=== PATIENT | male | born 1995 | race Caucasian/White ===

== ENCOUNTER 2017-01-29 23:03 | Emergency (ER) | payer BC ==
[2017-01-29 23:07] VITALS: RESP 16
[2017-01-29] MEDS ORDERED: ONDANSETRON 4 MG/2 ML VIAL IVP STA (23:53)
[2017-01-29] MEDS ORDERED: MAG HYDROX/AL HYDROX/SIMETH 30 ML, HYOSCYAMINE ELIXIR 10 ML, CIMETIDINE HCL 300 MG PO STA ×3 (23:53)
[2017-01-29] MEDS ORDERED: FAMOTIDINE 20 MG/2 ML VIAL IV STA (23:53)
--- NOTE | 2017-01-29 23:55 | ED ---
Abdominal Pain HPI - General Chief Complaint: Abdominal Pain Stated Complaint: Abd Pain Time Seen by Provider: 01/29/17 23:23 Source: patient, RN notes reviewed Mode of arrival: ambulatory Limitations: no limitations - History of Present Illness Initial Comments: 21-year-old male presents emergency Department chief complaint of epigastric pain. Patient states started last 2 days states he has not been able to use much his usual. He does admit to some acid reflux and nausea. Denies any vomiting, constipation. He states he has had some lites diarrhea. Denies any dysuria or hematuria. He's had no prior abdominal surgeries. Denies any fever , chills, night sweats, chest pain or shortness of breath. He states he tried some antacids of some sort cannot remember the name but had minimal relief. - Related Data Previous Rx's Medication Instructions Recorded Omeprazole 40 mg PO DAILY #14 capsule. 01/30/17 Ondansetron Odt [Zofran Odt] 4 mg PO Q8HR PRN #10 tab 01/30/17 Allergies Allergy/AdvReac Type Severity Reaction Status Date / Time No Known Allergies Allergy Verified 01/29/17 23:07 Review of Systems ROS Statement: Those systems with pertinent positive or pertinent negative responses have been documented in the HPI. ROS Other: All systems not noted in ROS Statement are negative. Past Medical History Past Medical History: No Reported History History of Any Multi-Drug Resistant Organisms: None Reported Past Surgical History: No Surgical Hx Reported Past Psychological History: No Psychological Hx Reported Smoking Status: Never smoker Past Alcohol Use History: Occasional Past Drug Use History: None Reported General Exam Limitations: no limitations General appearance: alert, in no apparent distress Head exam: Present: atraumatic, normocephalic, normal inspection Neck exam: Present: normal inspection. Absent: tenderness, meningismus, lymphadenopathy Respiratory exam: Present: normal lung sounds bilaterally. Absent: respiratory distress, wheezes, rales, rhonchi, stridor Cardiovascular Exam: Present: regular rate, normal rhythm, normal heart sounds. Absent: systolic murmur, diastolic murmur, rubs, gallop, clicks GI/Abdominal exam: Present: soft, tenderness (Moderate epigastric tenderness), normal bowel sounds. Absent: distended, guarding, rebound, rigid Back exam: Absent: CVA tenderness (R), CVA tenderness (L) Skin exam: Present: warm, dry, intact, normal color. Absent: rash Course Vital Signs 01/29/17 01/30/17 23:06 00:22 Temperature 98.4 F Pulse Rate 94 95 Respiratory 16 16 Rate Blood Pressure 137/83 142/80 O2 Sat by Pulse 98 98 Oximetry Medical Decision Making - Medical Decision Making 21-year-old male present emergency department for epigastric discomfort. Patient's laboratory shows no acute abnormality. Patient was given GI cocktail to see if it does feel improved at this time. Patient will be started on omeprazole and given Zofran for his nausea. Patient will follow-up with PCP for recheck and we did discuss possible EGD if symptoms do not improve. - Lab Data Result diagrams: 01/29/17 23:53 01/29/17 23:53 Lab Results 01/29/17 01/29/17 01/29/17 Range/Units 23:53 23:53 23:53 WBC 6.3 (3.8-10.6) k/uL RBC 5.60 (4.30-5.90) m/uL Hgb 16.2 (13.0-17.5) gm/dL Hct 46.9 (39.0-53.0) % MCV 83.7 (80.0-100.0) fL MCH 28.9 (25.0-35.0) pg MCHC 34.5 (31.0-37.0) g/dL RDW 13.1 (11.5-15.5) % Plt Count 165 (150-450) k/uL Neutrophils % 59 % Lymphocytes % 33 % Monocytes % 5 % Eosinophils % 1 % Basophils % 1 % Neutrophils # 3.7 (1.3-7.7) k/uL Lymphocytes # 2.1 (1.0-4.8) k/uL Monocytes # 0.3 (0-1.0) k/uL Eosinophils # 0.1 (0-0.7) k/uL Basophils # 0.0 (0-0.2) k/uL Sodium 140 (137-145) mmol/L Potassium 4.3 (3.5-5.1) mmol/L Chloride 100 (98-107) mmol/L Carbon Dioxide 27 (22-30) mmol/L Anion Gap 13 mmol/L BUN 16 (9-20) mg/dL Creatinine 0.90 (0.66-1.25) mg/dL Est GFR (MDRD) Af Amer >60 (>60 ml/min/1.73 sqM) Est GFR (MDRD) Non-Af >60 (>60 ml/min/1.73 sqM) Glucose 84 (74-99) mg/dL Calcium 10.5 H (8.4-10.2) mg/dL Total Bilirubin 0.7 (0.2-1.3) mg/dL AST 25 (17-59) U/L ALT 36 (21-72) U/L Alkaline Phosphatase 62 (38-126) U/L Total Protein 8.1 (6.3-8.2) g/dL Albumin 4.8 (3.5-5.0) g/dL Amylase 47 (30-110) U/L Lipase 37 (23-300) U/L Urine Color Yellow Urine Appearance Clear (Clear) Urine pH 5.5 (5.0-8.0) Ur Specific [place] 1.022 (1.001-1.035) Urine Protein Negative (Negative) Urine Glucose (UA) Negative (Negative) Urine Ketones Trace H (Negative) Urine Blood Negative (Negative) Urine Nitrite Negative (Negative) Urine Bilirubin Negative (Negative) Urine Urobilinogen <2.0 (<2.0) mg/dL Ur Leukocyte Esterase Negative (Negative) Disposition Clinical Impression: Gastritis Disposition: HOME SELF-CARE Condition: Stable Instructions: Gastritis (ED) Additional Instructions: Please return to the Emergency Department if symptoms worsen or any other concerns. Prescriptions: Omeprazole 40 mg PO DAILY #14 capsule. Ondansetron Odt [Zofran Odt] 4 mg PO Q8HR PRN #10 tab PRN Reason: Nausea Referrals: None,Stated [Primary Care Provider] - 1-2 days Prashanth Washington MD [STAFF PHYSICIAN] - 1-2 days Time of Disposition: 00:26
[2017-01-30 00:05] LABS: Appearance,Urine Clear (Clear); Basophils % (A) 1 %; Bilirubin,Urine Negative (Negative); CH 29.1; CHCM 34.9; Eosinophils # (A) 0.1 k/uL (0-0.7); Eosinophils % (A) 1 %; Glucose,Urine (UA) Negative (Negative); HCT 46.9 % (39.0-53.0); HDW 2.32; HGB 16.2 gm/dL (13.0-17.5); Ketones,Urine Trace (Negative); Leukocyte Esterase,Urine Negative (Negative); Luc # (Auto) 0.14; Luc % (Auto) 2; Lymphocytes # (A) 2.1 k/uL (1.0-4.8); Lymphocytes % (A) 33 %; MCH 28.9 pg (25.0-35.0); MCHC 34.5 g/dL (31.0-37.0); MCV 83.7 fL (80.0-100.0); Monocytes # (A) 0.3 k/uL (0-1.0); Monocytes % (A) 5 %; Neutrophils # (A) 3.7 k/uL (1.3-7.7); Neutrophils % (A) 59 %; Nitrite,Urine Negative (Negative); PH, Urine 5.5 (5.0-8.0); Protein,Urine Negative (Negative); RDW 13.1 % (11.5-15.5); Specific Gravity,Urine 1.022 (1.001-1.035); UA Billing (MACRO vs. MICRO) CHEM; Urobilinogen,Urine <2.0 mg/dL (<2.0); WBC 6.3 k/uL (3.8-10.6)
--- NOTE | 2017-01-30 00:10 | XR ---
EXAM: XR KUB, 1 View CLINICAL HISTORY: Reason: abdominal pain TECHNIQUE: Frontal supine view of the abdomen/pelvis. COMPARISON: No relevant prior studies available. FINDINGS: Gastrointestinal tract: Stool noted throughout the colon. No dilation. Bones/joints: Unremarkable. IMPRESSION: No acute findings.
[2017-01-30 00:13] LABS: ALT 36 U/L (21-72); AST 25 U/L (17-59); Alkaline Phosphatase 62 U/L (38-126); Amylase 47 U/L (30-110); Anion Gap 13 mmol/L; Blood Urea Nitrogen 16 mg/dL (9-20); Calcium 10.5 mg/dL (8.4-10.2); Carbon Dioxide 27 mmol/L (22-30); Chloride 100 mmol/L (98-107); Glucose 84 mg/dL (74-99); Non-African American GFR(MDRD) >60 (>60 ml/min/1.73 sqM); Potassium 4.3 mmol/L (3.5-5.1); Sodium 140 mmol/L (137-145); Total Bilirubin 0.7 mg/dL (0.2-1.3); Total Protein 8.1 g/dL (6.3-8.2)
[2017-01-30 00:56] VITALS: BP 118/75; PULSE 63; TEMP 98.9
== END 2017-01-30 00:50 | disposition home or self-care (01) ==
LOC: EC 23:03
DX: K29.70 Gastritis, unspecified, without bleeding (principal); R11.0 Nausea; R19.7 Diarrhea, unspecified
CPT/HCPCS: 36415; 80053; 82150; 83690; 85025; 81003; 74000; 99284; 96374; 96375; J2405

== ENCOUNTER 2018-01-04 18:08 | Emergency (ER) | payer OTHER, BC ==
[2018-01-04 18:43] VITALS: BP 131/67; PULSE 79; RESP 18; TEMP 98.2
--- NOTE | 2018-01-04 19:06 | ED ---
General Adult HPI - General Chief complaint: Burn/Smoke Inhalation Stated complaint: [facility] - rt hand burn Time Seen by Provider: 01/04/18 18:46 Source: patient, RN notes reviewed Mode of arrival: ambulatory Limitations: no limitations - History of Present Illness Initial comments: 22-year-old male presents to the emergency department for a chief complaint of burn to right hand 3 hours. Patient states he was working at [employer] when he touched a metal coffee pot and it burned his hand. Patient states he then came straight to the emergency department. Patient denies any other fortune. Patient denies any other injuries. Patient states it is painful when touching it. Patient has no other complaints at this time including shortness of breath , chest pain, abdominal pain, nausea or vomiting, headache, or visual changes. - Related Data Previous Rx's Medication Instructions Recorded Omeprazole 40 mg PO DAILY #14 capsule. 01/30/17 Ondansetron Odt [Zofran Odt] 4 mg PO Q8HR PRN #10 tab 01/30/17 Bacitracin Oint 1 applic TOPICAL BID #100 gm 01/04/18 Allergies Allergy/AdvReac Type Severity Reaction Status Date / Time No Known Allergies Allergy Verified 01/04/18 19:18 Review of Systems ROS Statement: Those systems with pertinent positive or pertinent negative responses have been documented in the HPI. ROS Other: All systems not noted in ROS Statement are negative. Past Medical History Past Medical History: No Reported History History of Any Multi-Drug Resistant Organisms: None Reported Past Surgical History: No Surgical Hx Reported Past Psychological History: No Psychological Hx Reported Smoking Status: Never smoker Past Alcohol Use History: Occasional Past Drug Use History: None Reported General Exam Limitations: no limitations General appearance: alert, in no apparent distress Head exam: Present: atraumatic, normocephalic, normal inspection Eye exam: Present: normal appearance. Absent: scleral icterus, conjunctival injection ENT exam: Present: normal exam, mucous membranes moist Neck exam: Present: normal inspection, full ROM. Absent: tenderness, meningismus, lymphadenopathy Respiratory exam: Present: normal lung sounds bilaterally. Absent: respiratory distress, wheezes, rales, rhonchi, stridor Cardiovascular Exam: Present: regular rate, normal rhythm, normal heart sounds. Absent: systolic murmur, diastolic murmur, rubs, gallop, clicks Extremities exam: Present: full ROM (Full range of motion of right wrist and hand), tenderness (Fortune are tender to touch.), normal capillary refill ( Capillary refill less than 2 seconds and radial pulse 2+ in the right upper extremity. Sensation intact in the right upper extremity including all 5 digits.), other (Patient has a 4 cm x 3 cm burn on the palmar lateral aspect of the right hand. He also has a 4 cm x 4 cm burn on the medial aspect of the palmar right hand. No vesicles or blistering notice at this time. Fortune are erythematous in nature. No signs of cellulitic changes or infection. No open wounds.) Course Vital Signs 01/04/18 18:41 Temperature 98.2 F Pulse Rate 79 Respiratory 18 Rate Blood Pressure 131/67 O2 Sat by Pulse 98 Oximetry Medical Decision Making - Medical Decision Making 22-year-old male presents to the emergency determine for chief complaint of fortune on the right hand 3 hours. Patient was working at [employer] when he touched a metal coffeepot and produced right hand. On exam there are 2 areas of erythema on the palmar aspect right hand without any blistering, vesicles, or breaks in the skin. Patient did not need a tetanus at this time due to no opening in the skin. Patient was educated to keep the hand clean and apply bacitracin. He will also keep the hand wrapped to keep fortune moist to assist in facilitating healing. He will follow up with primary care in 1-2 days. He will return to the emergency department if he has any worsening symptoms or notes any signs of infection. Disposition Clinical Impression: Burn Disposition: HOME SELF-CARE Condition: Good Instructions: Second Degree Burn (ED) Additional Instructions: Please apply bacitracin twice per day. Make sure to clean wound before applications with mild soap and water. Keep hand wrapped while fortune are healing. Return to the emergency department if you have any worsening symptoms. Otherwise follow-up with primary care in 1-2 days. Prescriptions: Bacitracin Oint 1 applic TOPICAL BID #100 gm Is patient prescribed a controlled substance at d/c from ED?: No Referrals: Adan Bojorquez MD [STAFF PHYSICIAN] - 1-2 days Time of Disposition: 19:04
== END 2018-01-04 19:37 | disposition home or self-care (01) ==
LOC: EC 18:08
DX: T23.151A Burn of first degree of right palm, initial encounter (principal); X15.8XXA Contact with other hot household appliances, initial encounter; Y93.89 Activity, other specified; Y92.511 Restaurant or cafe as the place of occurrence of the external cause; Y99.0 Civilian activity done for income or pay
CPT/HCPCS: 99283

== ENCOUNTER 2018-08-05 16:35 | Emergency (ER) | payer BC ==
[2018-08-05 16:50] VITALS: BP 121/75; PULSE 86; RESP 16; TEMP 99.2
[2018-08-05] MEDS ORDERED: SODIUM CHLORIDE 0.9% 1,000 ML IV STA (17:18)
[2018-08-05] MEDS ORDERED: ONDANSETRON 4 MG/2 ML VIAL IVP STA (17:18)
[2018-08-05] MEDS ORDERED: KETOROLAC 30 MG/ML 1 ML VIAL IVP STA (17:18)
[2018-08-05] MEDS ORDERED: diphenhydrAMINE 50 MG/ML 1 ML VIAL IVP STA (17:18)
--- NOTE | 2018-08-05 17:21 | ED ---
Headache HPI - General Chief Complaint: Headache Stated Complaint: headache,vomiting Time Seen by Provider: 08/05/18 16:53 Source: RN notes reviewed, old records reviewed Mode of arrival: ambulatory Limitations: no limitations - History of Present Illness Initial Comments: Patient is a 23-year-old male presents emergency department today from work with complaints of headache body aches and vomiting episodes. Patient reports that his girlfriend had similar symptoms yesterday. Patient states he came home from work and just feels generally ill. He's had multiple episodes of vomiting complains of a severe headache. He has no significant history of migraines. He denies any abdominal pain at this time. - Related Data Previous Rx's Medication Instructions Recorded Ondansetron [Zofran] 4 mg PO Q8HR PRN #8 tab 08/05/18 Allergies Allergy/AdvReac Type Severity Reaction Status Date / Time No Known Allergies Allergy Verified 08/05/18 16:50 Review of Systems ROS Statement: Those systems with pertinent positive or pertinent negative responses have been documented in the HPI. ROS Other: All systems not noted in ROS Statement are negative. Past Medical History Past Medical History: No Reported History History of Any Multi-Drug Resistant Organisms: None Reported Past Surgical History: No Surgical Hx Reported Past Psychological History: No Psychological Hx Reported Smoking Status: Never smoker Past Alcohol Use History: Occasional Past Drug Use History: None Reported General Exam - General Exam Comments Initial Comments: 23-year-old male. Alert and oriented. No distress. General: Well appearing, well nourished, in no distress. Oriented x 3, normal mood and affect . Ambulating without difficulty. Skin: Good turgor, no rash, unusual bruising or prominent lesions Hair: Normal texture and distribution. HEENT: Head: Normocephalic, atraumatic, no visible or palpable masses, depressions, or scaring. Eyes: Visual acuity intact, conjunctiva clear, sclera non-icteric, EOM intact, PERRL. Ears: EACs clear, TMs translucent & cone of light visualized. hearing intact. Nose: No external lesions, mucosa non-inflamed, septum and turbinates normal Mouth: Mucous membranes moist, no mucosal lesions. Teeth/Gums: No obvious caries or periodontal disease. No gingival inflammation or significant resorption. Pharynx: Mucosa non-inflamed, no tonsillar hypertrophy or exudate Neck: Supple, without lesions, bruits, or adenopathy, thyroid non-enlarged and non-tender Heart: No cardiomegaly or thrills; regular rate and rhythm, no murmur or gallop Lungs: Clear to auscultation and percussion Abdomen: Bowel sounds normal, no tenderness, organomegaly, masses, or hernia Back: Spine normal without deformity or tenderness, no CVA tenderness Extremities: No amputations or deformities, cyanosis, edema or varicosities, peripheral pulses intact Musculoskeletal: Normal gait and station. No misalignment, asymmetry, crepitation, defects, tenderness, masses, effusions, decreased range of motion, instability, atrophy or abnormal strength or tone in the head, neck, spine, ribs, pelvis or extremities. Neurologic: CN 2-12 normal. Sensation to pain, touch, and proprioception normal. DTRs normal in upper and lower extremities. No pathologic reflexes. Psychiatric: Oriented X3, intact recent and remote memory, judgment and insight, normal mood and affect. Limitations: no limitations Course Vital Signs 08/05/18 16:47 Temperature 99.2 F Pulse Rate 86 Respiratory 16 Rate Blood Pressure 121/75 O2 Sat by Pulse 99 Oximetry - Reevaluation(s) Reevaluation #1: 08/05/18 18:53 Patient is reevaluated sleeping. Resting comfortably in bed. Patient reports his headache is diminished and he is further nausea. Discussed likely viral syndrome. Patient agrees to treatment plan. Discussed return parameters. Medical Decision Making - Medical Decision Making This is a 23-year-old male presents emergency department today with complaints of a headache and vomiting episodes today. Patient states the symptoms started this afternoon while at work. He has no meningeal signs. Vital signs are stable. Discussed likely viral syndrome. His girlfriend had similar complaints yesterday. At this time Patient is given IV fluids and migraine cocktail. On reevaluation was sleeping and resting comfortably in bed. Patient has no abdominal tenderness and no other major complaints. Patient will be discharged at this time with a prescription for Zofran. Discussed return parameters and close follow-up. - Lab Data Lab Results 08/05/18 Range/Units Unknown Influenza Type A RNA Not Detected (Not Detectd) Influenza Type B (PCR) Not Detected (Not Detectd) Disposition Clinical Impression: Nausea & vomiting, Headache Disposition: HOME SELF-CARE Condition: Good Instructions (If sedation given, give patient instructions): Acute Nausea and Vomiting (ED) Additional Instructions: Patient advised that close follow-up with primary care physician. Return to emergency department if any alarming signs or symptoms occur. Use the Zofran as needed every 8 hours and use Motrin Tylenol for headache and pain.. Prescriptions: Ondansetron [Zofran] 4 mg PO Q8HR PRN #8 tab PRN Reason: Nausea And Vomiting Is patient prescribed a controlled substance at d/c from ED?: No Referrals: None,Stated [Primary Care Provider] - 1-2 days Radha Huffman MD [STAFF PHYSICIAN] - 1-2 days Time of Disposition: 18:54
== END 2018-08-05 19:13 | disposition home or self-care (01) ==
LOC: EC 16:35
DX: R51 Headache (principal); R11.2 Nausea with vomiting, unspecified; R52 Pain, unspecified
CPT/HCPCS: 87502; 99284; 96374; 96375 ×2; 96361 ×2; J1200; J2405; J1885

== ENCOUNTER 2019-07-27 19:18 | Emergency (ER) | payer BC ==
[2019-07-27] MEDS ORDERED: cefTRIAXone IN SWFI 1,000 MG/10 ML SYRINGE IVP STA (19:51)
[2019-07-27] MEDS ORDERED: SODIUM CHLORIDE 0.9% 1,000 ML IV STA (19:51)
[2019-07-27 20:05] LABS: Basophils % (A) 1 %; Eosinophils % (A) 0 %; HCT 46.3 % (39.0-53.0); HGB 15.6 gm/dL (13.0-17.5); Lymphocytes # (A) 1.4 k/uL (1.0-4.8); Lymphocytes % (A) 19 %; MCH 27.8 pg (25.0-35.0); MCHC 33.8 g/dL (31.0-37.0); MCV 82.4 fL (80.0-100.0); Mean Platelet Volume 7.7; Monocytes # (A) 0.5 k/uL (0-1.0); Monocytes % (A) 8 %; Neutrophils # (A) 4.9 k/uL (1.3-7.7); Neutrophils % (A) 69 %; Platelet Count 181 k/uL (150-450); RBC 5.62 m/uL (4.30-5.90); RDW 11.9 % (11.5-15.5); WBC 7.1 k/uL (3.8-10.6)
[2019-07-27] MEDS ORDERED: ONDANSETRON 4 MG/2 ML VIAL IVP STA (20:14)
[2019-07-27] MEDS ORDERED: KETOROLAC 30 MG/ML 1 ML VIAL IVP STA (20:17)
[2019-07-27 20:18] LABS: Albumin 4.4 g/dL (3.5-5.0); Calcium 9.2 mg/dL (8.4-10.2); Total Bilirubin 0.9 mg/dL (0.2-1.3); Total Protein 7.6 g/dL (6.3-8.2)
--- NOTE | 2019-07-27 21:01 | XR ---
EXAMINATION TYPE: XR chest 2V DATE OF EXAM: 07/27/2019 COMPARISON: NONE HISTORY: Chest pain TECHNIQUE: 2 views FINDINGS: Heart and mediastinum are normal. Lungs are clear. Diaphragm is normal. Bony thorax appears normal. IMPRESSION: Normal chest.
[2019-07-27 21:15] LABS: Appearance,Urine Clear (Clear); Bilirubin,Urine Negative (Negative); Blood,Urine Negative (Negative); Color,Urine Yellow; Glucose,Urine (UA) Negative (Negative); Ketones,Urine 1+ (Negative); Leukocyte Esterase,Urine Negative (Negative); Nitrite,Urine Negative (Negative); Protein,Urine Trace (Negative)
--- NOTE | 2019-07-27 21:29 | CT ---
EXAMINATION TYPE: CT abdomen pelvis w con DATE OF EXAM: 07/27/2019 COMPARISON: None HISTORY: abdominal pain and nausea CT DLP: 620 mGycm Automated exposure control for dose reduction was used. CONTRAST: Performed with IV Contrast, patient injected with 100 mL of Isovue 300. Lung bases are clear. There is no pleural effusion. Heart size is normal. Liver spleen stomach pancre as gallbladder appear normal. Bile ducts are not dilated. There is no adrenal mass. Kidneys show satisfactory contrast opacification. There is no hydronephrosi s. Ureters are not dilated. Delayed images show normal renal excretion. There is no retroperitoneal a denopathy. Bladder distends smoothly. There is no inguinal hernia. There is no free fluid in the pelvis. There is no sign of a pelvic mass. There is no mesenteric edema . There is no ascites or free air. Appendix not definitely seen. No sign of thickened appendix. I see no intestinal wall thickening. There is no evidence of a bowel obstruction. Lumbar vertebra have normal spacing and alignment. Posterior elements are intact. Bony pelvis appears intact. IMPRESSION: Negative CT scan abdomen and pelvis. Appendix not seen. No sign of appendicitis.
--- NOTE | 2019-07-27 22:23 | ED ---
General Adult HPI - General Source: patient Mode of arrival: ambulatory Limitations: no limitations <Anton Price - Last Filed: 07/28/19 03:05> <Ravinder Hurtado - Last Filed: 08/13/19 22:05> - General Chief complaint: Headache Stated complaint: TORO Time Seen by Provider: 07/27/19 19:29 - History of Present Illness Initial comments: Patient is a 24-year-old male with history of migraines presents emergency Depa rtment with chief complaint of a headache. Patient reports he developed a headache in the frontal region. States was a gradual onset with photosensitivity, nausea or vomiting. States his typical migraines don't last this long. States he also developed generalized weakness during this time. Patient also reports some shortness of breath with occasional wheezing. Does report a nonproductive cough. Does also report sore throat bilateral otalgia. States he is also developed some diffuse abdominal tenderness. States he was recently today urgent care where he was given a Toradol shot and discharged. Has no history of asthma or smoking. Denies recent travels outside of the country. Denies any hemoptysis, hematemesis. Denies urgency or frequency but does report dysuria. Brother and fianc also present in her room. They deny any altered mental status. Patient denies neck stiffness. (Anton Price) - Related Data Previous Rx's Medication Instructions Recorded Ondansetron [Zofran] 4 mg PO Q8HR PRN #8 tab 08/05/18 Allergies Allergy/AdvReac Type Severity Reaction Status Date / Time No Known Allergies Allergy Verified 07/27/19 19:22 Review of Systems ROS Other: All systems not noted in ROS Statement are negative. <Anton Price - Last Filed: 07/28/19 03:05> ROS Other: All systems not noted in ROS Statement are negative. <Ravinder Hurtado - Last Filed: 08/13/19 22:05> ROS Statement: Those systems with pertinent positive or pertinent negative responses have been documented in the HPI. Past Medical History Past Medical History: No Reported History History of Any Multi-Drug Resistant Organisms: None Reported Past Surgical History: No Surgical Hx Reported Past Psychological History: No Psychological Hx Reported Smoking Status: Never smoker Past Alcohol Use History: Occasional Past Drug Use History: None Reported <Anton Price - Last Filed: 07/28/19 03:05> General Exam Limitations: no limitations General appearance: alert, in distress Head exam: Present: atraumatic, normocephalic, normal inspection Eye exam: Present: normal appearance, PERRL, EOMI Pupils: Present: normal accommodation ENT exam: Present: normal exam, normal oropharynx (Bilateral enlarged tonsils with exudates), mucous membranes moist, TM's normal bilaterally, normal external ear exam Neck exam: Present: normal inspection, full ROM Respiratory exam: Present: normal lung sounds bilaterally. Absent: respiratory distress, wheezes, rales Cardiovascular Exam: Present: regular rate, normal rhythm, normal heart sounds GI/Abdominal exam: Present: soft, tenderness (Diffuse). Absent: distended, guarding, rebound, rigid, organomegaly (No hepatosplenomegaly appreciated) Extremities exam: Present: normal inspection, full ROM, normal capillary refill, other (+2 ulnar and radial pulses bilaterally.) Back exam: Present: normal inspection, full ROM. Absent: tenderness Neurological exam: Present: alert, oriented X3 Psychiatric exam: Present: normal affect, normal mood Skin exam: Present: warm, dry, intact, normal color <Anton Price - Last Filed: 07/28/19 03:05> Course Vital Signs 07/27/19 07/27/19 07/27/19 19:19 21:31 22:23 Temperature 98.9 F 98.5 F 97.5 F L Pulse Rate 111 H 80 60 Respiratory 22 18 16 Rate Blood Pressure 144/71 130/82 129/82 O2 Sat by Pulse 97 98 98 Oximetry Medical Decision Making - Lab Data Result diagrams: 07/27/19 19:54 07/27/19 19:54 <Anton Price - Last Filed: 07/28/19 03:05> - Lab Data Result diagrams: 07/27/19 19:54 07/27/19 19:54 <Ravinder Hurtado - Last Filed: 08/13/19 22:05> - Medical Decision Making Patient is a 24-year-old male presenting to the emergency room with a chief complaint of a headache. Patient has been symptomatic for about 4 days which initially started with a headache with a gradual onset. He has also developed sore throat, bilateral rhinorrhea and a nonproductive cough. Patient also rep orts some shortness of breath No chest pain. Patient did appear to be somewhat in distress on initial evaluation. Patient did appear to have some diffuse abdominal tenderness with no splenomegaly appreciated. Patient did appear to have bilateral enlarged tonsils with exudates. Lactic, CBC, CMP and blood cultures were obtained. Patient was given fluids, antiemetics and 1 g of Rocephin. Chest x-ray is unremarkable. examine the patient and requested CT of abdomen and pelvis. Imaging yielded no significant findings. Lactic is 1.8. CBC CMP and UA are unremarkable. Influenza, rapid strep and heterophile negative. Dr. Hurtado also examined the patient because Dr. Funez left. Dr. Hurtado is suspecting viral syndrome to be the cause of his symptoms. Patient advised to alternate between Tylenol or Motrin for symptom control. Vitals are stable. Patient never actually developed a fever at home. Return parameters were thoroughly discussed with patient was understanding and agreeable. He was advised to follow with primary care. Case discussed with physician. (Anton Price) I saw this patient in conjunction with the physician wellness assistant. I performed independent history and physical exam. Agree with case management. (Ravinder Hurtado) - Lab Data Lab Results 07/27/19 07/27/19 07/27/19 Range/Units 19:25 19:54 19:54 WBC 7.1 (3.8-10.6) k/uL RBC 5.62 (4.30-5.90) m/uL Hgb 15.6 (13.0-17.5) gm/dL Hct 46.3 (39.0-53.0) % MCV 82.4 (80.0-100.0) fL MCH 27.8 (25.0-35.0) pg MCHC 33.8 (31.0-37.0) g/dL RDW 11.9 (11.5-15.5) % Plt Count 181 (150-450) k/uL Neutrophils % 69 % Lymphocytes % 19 % Monocytes % 8 % Eosinophils % 0 % Basophils % 1 % Neutrophils # 4.9 (1.3-7.7) k/uL Lymphocytes # 1.4 (1.0-4.8) k/uL Monocytes # 0.5 (0-1.0) k/uL Eosinophils # 0.0 (0-0.7) k/uL Basophils # 0.0 (0-0.2) k/uL Sodium 133 L (137-145) mmol/L Potassium 4.0 (3.5-5.1) mmol/L Chloride 97 L (98-107) mmol/L Carbon Dioxide 23 (22-30) mmol/L Anion Gap 13 mmol/L BUN 13 (9-20) mg/dL Creatinine 1.36 H (0.66-1.25) mg/dL Est GFR (CKD-EPI)AfAm 84 (>60 ml/min/1.73 sqM) Est GFR (CKD-EPI)NonAf 72 (>60 ml/min/1.73 sqM) Glucose 114 H (74-99) mg/dL Plasma Lactic Acid Esteban (0.7-2.0) mmol/L Calcium 9.2 (8.4-10.2) mg/dL Total Bilirubin 0.9 (0.2-1.3) mg/dL AST 27 (17-59) U/L ALT 16 (4-49) U/L Alkaline Phosphatase 63 (38-126) U/L Total Protein 7.6 (6.3-8.2) g/dL Albumin 4.4 (3.5-5.0) g/dL Urine Color Urine Appearance (Clear) Urine pH (5.0-8.0) Ur Specific [place] (1.001-1.035) Urine Protein (Negative) Urine Glucose (UA) (Negative) Urine Ketones (Negative) Urine Blood (Negative) Urine Nitrite (Negative) Urine Bilirubin (Negative) Urine Urobilinogen (<2.0) mg/dL Ur Leukocyte Esterase (Negative) Heterophile Antibody (Negative) Influenza Type A RNA Not Detected (Not Detectd) Influenza Type B (PCR) Not Detected (Not Detectd) Group A Strep Rapid (Negative) 07/27/19 07/27/19 07/27/19 Range/Units 19:54 19:54 20:06 WBC (3.8-10.6) k/uL RBC (4.30-5.90) m/uL Hgb (13.0-17.5) gm/dL Hct (39.0-53.0) % MCV (80.0-100.0) fL MCH (25.0-35.0) pg MCHC (31.0-37.0) g/dL RDW (11.5-15.5) % Plt Count (150-450) k/uL Neutrophils % % Lymphocytes % % Monocytes % % Eosinophils % % Basophils % % Neutrophils # (1.3-7.7) k/uL Lymphocytes # (1.0-4.8) k/uL Monocytes # (0-1.0) k/uL Eosinophils # (0-0.7) k/uL Basophils # (0-0.2) k/uL Sodium (137-145) mmol/L Potassium (3.5-5.1) mmol/L Chloride (98-107) mmol/L Carbon Dioxide (22-30) mmol/L Anion Gap mmol/L BUN (9-20) mg/dL Creatinine (0.66-1.25) mg/dL Est GFR (CKD-EPI)AfAm (>60 ml/min/1.73 sqM) Est GFR (CKD-EPI)NonAf (>60 ml/min/1.73 sqM) Glucose (74-99) mg/dL Plasma Lactic Acid Esteban 1.8 (0.7-2.0) mmol/L Calcium (8.4-10.2) mg/dL Total Bilirubin (0.2-1.3) mg/dL AST (17-59) U/L ALT (4-49) U/L Alkaline Phosphatase (38-126) U/L Total Protein (6.3-8.2) g/dL Albumin (3.5-5.0) g/dL Urine Color Urine Appearance (Clear) Urine pH (5.0-8.0) Ur Specific [place] (1.001-1.035) Urine Protein (Negative) Urine Glucose (UA) (Negative) Urine Ketones (Negative) Urine Blood (Negative) Urine Nitrite (Negative) Urine Bilirubin (Negative) Urine Urobilinogen (<2.0) mg/dL Ur Leukocyte Esterase (Negative) Heterophile Antibody Negative (Negative) Influenza Type A RNA (Not Detectd) Influenza Type B (PCR) (Not Detectd) Group A Strep Rapid Negative (Negative) 07/27/19 Range/Units 21:05 WBC (3.8-10.6) k/uL RBC (4.30-5.90) m/uL Hgb (13.0-17.5) gm/dL Hct (39.0-53.0) % MCV (80.0-100.0) fL MCH (25.0-35.0) pg MCHC (31.0-37.0) g/dL RDW (11.5-15.5) % Plt Count (150-450) k/uL Neutrophils % % Lymphocytes % % Monocytes % % Eosinophils % % Basophils % % Neutrophils # (1.3-7.7) k/uL Lymphocytes # (1.0-4.8) k/uL Monocytes # (0-1.0) k/uL Eosinophils # (0-0.7) k/uL Basophils # (0-0.2) k/uL Sodium (137-145) mmol/L Potassium (3.5-5.1) mmol/L Chloride (98-107) mmol/L Carbon Dioxide (22-30) mmol/L Anion Gap mmol/L BUN (9-20) mg/dL Creatinine (0.66-1.25) mg/dL Est GFR (CKD-EPI)AfAm (>60 ml/min/1.73 sqM) Est GFR (CKD-EPI)NonAf (>60 ml/min/1.73 sqM) Glucose (74-99) mg/dL Plasma Lactic Acid Esteban (0.7-2.0) mmol/L Calcium (8.4-10.2) mg/dL Total Bilirubin (0.2-1.3) mg/dL AST (17-59) U/L ALT (4-49) U/L Alkaline Phosphatase (38-126) U/L Total Protein (6.3-8.2) g/dL Albumin (3.5-5.0) g/dL Urine Color Yellow Urine Appearance Clear (Clear) Urine pH 8.0 (5.0-8.0) Ur Specific [place] 1.020 (1.001-1.035) Urine Protein Trace H (Negative) Urine Glucose (UA) Negative (Negative) Urine Ketones 1+ H (Negative) Urine Blood Negative (Negative) Urine Nitrite Negative (Negative) Urine Bilirubin Negative (Negative) Urine Urobilinogen 8.0 (<2.0) mg/dL Ur Leukocyte Esterase Negative (Negative) Heterophile Antibody (Negative) Influenza Type A RNA (Not Detectd) Influenza Type B (PCR) (Not Detectd) Group A Strep Rapid (Negative) Disposition Is patient prescribed a controlled substance at d/c from ED?: No Time of Disposition: 22:45 <Anton Price - Last Filed: 07/28/19 03:05> <Ravinder Hurtado - Last Filed: 08/13/19 22:05> Clinical Impression: Pharyngitis, Viral syndrome Disposition: HOME SELF-CARE Condition: Stable Instructions (If sedation given, give patient instructions): Viral Syndrome (ED) Additional Instructions: Please return to emergency department if he is not able to tolerate any fluids, develop any respiratory distress and have difficulty breathing. Otherwise alternate between Tylenol and Motrin for fever control. Follow up with your primary care. Referrals: None,Stated [Primary Care Provider] - 1-2 days
[2019-07-27 22:24] VITALS: BP 129/82; PULSE 60; RESP 16; TEMP 97.5
== END 2019-07-27 22:57 | disposition home or self-care (01) ==
LOC: EC 19:18
DX: J02.9 Acute pharyngitis, unspecified (principal); B34.9 Viral infection, unspecified
CPT/HCPCS: 99284 ×2; 96374 ×2; 96375 ×3; 96361 ×4; 36415; 80053; 83605; 85025; 86308; 81003; 87040; 87081; 87430; 87502; 71046; 74177; J2405; J0696; J1885; Q9967

== ENCOUNTER 2023-04-04 08:09 | Emergency (ER) | payer BC ==
[2023-04-04] MEDS ORDERED: IBUPROFEN 600 MG TAB PO STA (08:28)
[2023-04-04] MEDS ORDERED: ACETAMINOPHEN TAB 500 MG TAB PO STA (08:28)
--- NOTE | 2023-04-04 08:29 | ED ---
URI HPI - General Chief Complaint: Upper Respiratory Infection Stated Complaint: Weakness, MALENA Time Seen by Provider: 04/04/23 08:23 Source: patient, RN notes reviewed Mode of arrival: ambulatory Limitations: no limitations - History of Present Illness Initial Comments: 27-year-old male presents emergency Department chief complaint of fever cough congestion bodyaches. Patient started yesterday. Patient states that he has 2 kids are also sick. Patient has not taken any recent acetaminophen or ibuprofen. Patient denies any nausea vomiting diarrhea constipation physical complaints of sore throat. - Related Data Previous Rx's Medication Instructions Recorded Ondansetron [Zofran] 4 mg PO Q8HR PRN #8 tab 08/05/18 Ibuprofen 600 mg PO Q8H PRN #30 tab 01/25/23 Allergies Allergy/AdvReac Type Severity Reaction Status Date / Time No Known Allergies Allergy Verified 04/04/23 08:23 Review of Systems ROS Statement: Those systems with pertinent positive or pertinent negative responses have been documented in the HPI. ROS Other: All systems not noted in ROS Statement are negative. Past Medical History Past Medical History: No Reported History History of Any Multi-Drug Resistant Organisms: None Reported Past Surgical History: No Surgical Hx Reported Past Psychological History: No Psychological Hx Reported Smoking Status: Never smoker Past Alcohol Use History: Occasional Past Drug Use History: None Reported General Exam Limitations: no limitations General appearance: alert, in no apparent distress Head exam: Present: atraumatic, normocephalic, normal inspection Eye exam: Present: normal appearance, PERRL, EOMI. Absent: scleral icterus, conjunctival injection, periorbital swelling ENT exam: Present: normal exam, normal oropharynx, mucous membranes moist Neck exam: Present: normal inspection, full ROM. Absent: tenderness, menin gismus, lymphadenopathy Respiratory exam: Present: normal lung sounds bilaterally. Absent: respiratory distress, wheezes, rales, rhonchi, stridor Cardiovascular Exam: Present: normal rhythm, tachycardia, normal heart sounds. Absent: systolic murmur, diastolic murmur, rubs, gallop, clicks GI/Abdominal exam: Present: soft, normal bowel sounds. Absent: distended, tenderness, guarding, rebound, rigid Course Vital Signs 04/04/23 04/04/23 04/04/23 08:20 09:04 10:39 Temperature 100.3 F H 98.4 F 98.4 F Pulse Rate 101 H 96 Respiratory 20 20 Rate Blood Pressure 127/79 122/76 O2 Sat by Pulse 100 96 Oximetry Medical Decision Making - Medical Decision Making Was pt. sent in by a medical professional or institution (PEDRO LUIS Reyes, RESEARCH MANUFACTURING OPERATOR, urgent care, hospital, or prison...) When possible be specific @ -No Did you speak to anyone other than the patient for history (EMS, parent, family, police, friend...)? What history was obtained from this source @ -No Did you review nursing and triage notes (agree or disagree)? Why? @ -I reviewed and agree with nursing and triage notes Were old charts reviewed (outside hosp., previous admission, EMS record, old EKG, old radiological studies, urgent care reports/EKG's, prison records)? Report findings @ -No old charts were reviewed Differential Diagnosis (chest pain, altered mental status, abdominal pain women, abdominal pain men, vaginal bleeding, weakness, fever, dyspnea, syncope, head ache, dizziness, GI bleed, back pain, seizure, CVA, palpatations, mental health, musculoskeletal)? @ -Influenza,covid 19, RSV EKG interpreted by me (3pts min.). @ -None X-rays interpreted by me (1pt min.). @ -None done CT interpreted by me (1pt min.). @ -None done U/S interpreted by me (1pt. min.). @ -None done What testing was considered but not performed or refused? (CT, X-rays, U/S, labs)? Why? @ -None What meds were considered but not given or refused? Why? @ -None Did you discuss the management of the patient with other professionals (professionals i.e. PEDRO LUIS Reyes, RESEARCH MANUFACTURING OPERATOR, lab, RT, psych nurse, social work lecturer, social work program coordinator, teacher, state patrol officer, child support case officer)? Give summary @ -No Was smoking cessation discussed for >3mins.? @ -No Was critical care preformed (if so, how long)? @ -No Were there social determinants of health that impacted care today? How? (Homelessness, low income, unemployed, alcoholism, drug addiction, transportation, low edu. Level, literacy, decrease access to med. care, fdc, rehab)? @ -No Was there de-escalation of care discussed even if they declined (Discuss DNR or withdrawal of care, Hospice)? DNR status @ -No What co-morbidities impacted this encounter? (DM, HTN, Smoking, COPD, CAD, Cancer, CVA, ARF, Chemo, Hep., AIDS, mental health diagnosis, sleep apnea, morbid obesity)? @ -None Was patient admitted / discharged? Hospital course, mention meds given and route, prescriptions, significant lab abnormalities, going to OR and other pertinent info. @ -Discharge patient is Covid 19 positive patient discharged in stable condition Undiagnosed new problem with uncertain prognosis? @ -No Drug Therapy requiring intensive monitoring for toxicity (Heparin, Nitro, Insulin, Cardizem)? @ -No Were any procedures done? @ -No Diagnosis/symptom? @ -covid19 Acute, or Chronic, or Acute on Chronic? @ -[Acute Uncomplicated (without systemic symptoms) or Complicated (systemic symptoms)? @ -Uncomplicated Side effects of treatment? @ -No Exacerbation, Progression, or Severe Exacerbation? @ -No Poses a threat to life or bodily function? How? (Chest pain, [place], [place], pneumonia, PE, COPD, DKA, ARF, appy, cholecystitis, CVA, Diverticulitis, Homicidal, Suicidal, threat to staff... and all critical care pts) @ -No - Lab Data Lab Results 04/04/23 Range/Units 08:33 Influenza Type A (PCR) Not Detected (Not Detectd) Influenza Type B (PCR) Not Detected (Not Detectd) RSV (PCR) Not Detected (Not Detectd) SARS-CoV-2 (PCR) Detected A (Not Detectd) Disposition Clinical Impression: COVID-19 Disposition: HOME SELF-CARE Condition: Stable Instructions (If sedation given, give patient instructions): COVID-19 (Coronavirus Disease 2019) (ED) Additional Instructions: Please return to the Emergency Department if symptoms worsen or any other concerns. Is patient prescribed a controlled substance at d/c from ED?: No Referrals: None,Stated [Primary Care Provider] - 1-2 days Time of Disposition: 10:10
[2023-04-04 08:36] VITALS: RESP 20
[2023-04-04 09:25] VITALS: TEMP 98.4
[2023-04-04 11:03] VITALS: BP 122/76; PULSE 96
== END 2023-04-04 10:40 | disposition home or self-care (01) ==
LOC: EC 08:09
DX: U07.1 COVID-19 (principal)
CPT/HCPCS: 87636; 99285